=== PATIENT | female | born 1985 | race Caucasian/White ===

== ENCOUNTER 2017-07-28 07:18 | Emergency (ER) | payer MEDICAID ==
[~2017-07-28] VITALS: Ht 160 cm; Wt 64.9 kg
[2017-07-28 07:27] VITALS: Ht 160 cm; Wt 64.9 kg
[2017-07-28 08:03] LABS: BASOPHIL % 0.1 % (0-2); PLATELET COUNT 182 x10^3mcL (130-400); RED CELL DISTRIBUTION WIDTH 13.5 % (11.5-14.5)
[2017-07-28 08:10] LABS: CALCIUM 8.3 mg/dL (8.5-10.1); CARBON DIOXIDE 27.4 mmol/L (21-32); CHLORIDE SERUM 105 mmol/L (98-107); CREATININE SERUM 0.7 mg/dL (0.6-1.0); GFR1 > 60 mL/min; GLUCOSE SERUM 114 mg/dL (74-106); POTASSIUM SERUM 3.9 mmol/L (3.5-5.1); SODIUM SERUM 142 mmol/L (136-145)
[2017-07-28 08:14] LABS: ALBUMIN 3.9 g/dL (3.4-5.0); ALKALINE PHOSPHATASE 86 U/L (46-116); ALT/SGPT 54 U/L (14-59); AST/SGOT 36 U/L (15-37); BILIRUBIN TOTAL 0.71 mg/dL (0.20-1.00); LIPASE 78 IU/L (73-393); TOTAL PROTEIN, SERUM 7.2 g/dL (6.4-8.2)
[2017-07-28 09:52] VITALS: BP 98/64
== END 2017-07-28 09:52 | disposition home or self-care (01) ==
LOC: ED 07:18
PROVIDERS: Emergency Medicine
DX: R10.32 Left lower quadrant pain (principal)
CPT/HCPCS: J1885; J3010; J7030

== ENCOUNTER 2017-07-29 08:14 | Emergency (ER) | payer MEDICAID ==
[~2017-07-29] VITALS: Ht 160 cm; Wt 64.9 kg
[2017-07-29 08:25] VITALS: BP 111/65; Ht 160 cm; Wt 64.9 kg
== END 2017-07-29 09:31 | disposition home or self-care (01) ==
LOC: ED 08:14
DX: R10.32 Left lower quadrant pain (principal)

== ENCOUNTER 2018-06-22 11:42 | Emergency (ER) | payer MEDICAID ==
[~2018-06-22] VITALS: Ht 157.5 cm; Wt 67.6 kg
[2018-06-22 11:46] VITALS: Ht 157.5 cm; Wt 67.6 kg
[2018-06-22 13:27] LABS: BASOPHIL % 0.7 % (0-2); PLATELET COUNT 237 x10^3mcL (130-400); RED CELL DISTRIBUTION WIDTH 12.1 % (11.5-14.5)
[2018-06-22 13:34] LABS: CALCIUM 8.6 mg/dL (8.5-10.1); CARBON DIOXIDE 26.5 mmol/L (21-32); CHLORIDE SERUM 106 mmol/L (98-107); CREATININE SERUM 0.6 mg/dL (0.6-1.0); GFR1 > 60 mL/min; GLUCOSE SERUM 96 mg/dL (74-106); POTASSIUM SERUM 4.5 mmol/L (3.5-5.1); SODIUM SERUM 141 mmol/L (136-145)
[2018-06-22 15:18] VITALS: BP 111/77
== END 2018-06-22 15:18 | disposition home or self-care (01) ==
LOC: ED 11:42
PROVIDERS: Emergency Medicine
DX: R07.89 Other chest pain (principal)
CPT/HCPCS: 36415; 85378; Q0092

== ENCOUNTER 2019-06-13 21:48 | Emergency (ER) | payer MEDICAID ==
[~2019-06-13] VITALS: Ht 160 cm; Wt 72.6 kg
[2019-06-13 22:09] VITALS: BP 127/72; Ht 160 cm; Wt 72.6 kg
== END 2019-06-13 22:39 | disposition home or self-care (01) ==
LOC: ED 21:48
DX: N39.0 Urinary tract infection, site not specified (principal)